=== PATIENT | male | born 1950 | race Caucasian/White ===

== ENCOUNTER 2020-09-21 13:49 | Observation (INO) ==
[2020-09-21] MEDS ORDERED: NORMAL SALINE 1,000 ML IV ONE (14:22)
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
[2020-09-21 14:25] LABS: Hemoglobin 9.6 gm/dL (13.5-18.0); Mean Cell Volume 85.4 fl (78-100); Mean Corpuscular Hemoglobin 26.4 pg (27-31); Mean Platelet Volume 10.4 fl (8-11.3); Neutrophil # 7.2 K/mm3 (1.3-6.0); Neutrophil % 59.1 % (42-75.0); Platelet Count 330 K/mm3 (150-450); Red Blood Count 3.63 M/mm3 (4.7-6.0); Red Cell Distribution Width 13.3 % (11.5-14.0); White Blood Count 12.3 K/mm3 (4.0-10.5)
[2020-09-21 14:42] LABS: ALT 23 U/L (19-67); AST 18 U/L (0-48); Albumin * 2.9 gm/dl (3.4-5.0); Alkaline Phosphatase * 99 U/L (50-170); Anion Gap 15.4 mmol/L (6.8-13.8); BUN/Creatinine Ratio 11.9 (9.0-21.6); Bilirubin, Total 0.4 mg/dL (0.0-1.1); Blood Urea Nitrogen 39 mg/dL (6-23); Ca. Corrected For Albumin 9.9 mg/dL (8.4-10.2); Calcium * 9.3 mg/dL (7.9-10.9); Chloride 102 mmol/L (97-106); Glucose * 115 mg/dL (70-110); Potassium 5.4 mmol/L (3.4-4.6); Sodium 137 mmol/L (132-142); Total Protein 7.9 gm/dL (6.2-8.2); Troponin I Less than 0.017 ng/mL (0.00-0.10)
[2020-09-21 16:41] LABS: Urine Bilirubin 1 mg/dl (NEGATIVE); Urine Blood Negative /ul (NEGATIVE); Urine Ketone 5 mg/dL (NEGATIVE); Urine Nitrite Negative (NEGATIVE); Urine Protein Negative (NEGATIVE); Urine Specific Gravity 1.025 SP.GR. (1.005-1.030); Urine Urobilinogen Normal (NORMAL)
[2020-09-21 16:57] LABS: Urine Appearance Clear (CLEAR); Urine Bacteria TRACE; Urine Color Yellow; Urine Hyaline Cast 0-5 /LPF; Urine RBC TRACE /hpf (0-5); Urine WBC TRACE /hpf (0-5)
--- NOTE | 2020-09-21 17:55 | HP ---
Chief Complaint - Chief Complaint Date of Service: 09/21/20 Time of Service: 15:00 Chief Complaint: weakness, fall History of Present Illness: Pt with PMHx of previous CVA, recent empyema, HTN presents to the ED today after getting weak and falling backwards, hitting his head. He reports being DCd home 2 days ago from a nursing facility in [place], [place]. He went there after a hospitalization at the [facility] in July, when the empyema was drained. He reports not really regaining his strength from that hospitalization. He states he has been eating better the last couple of days, and has been drinking more water. Workup in the ED found an acute ARNULFO, with GFR of 20 and creatinine of 3.28, along with hyperkalemia with K+ of 5.2. He is admitted for fluids for the ARNULFO. He also reports some CP with deep inspiration. He denies fever, SOB, abd pain, constipation, dysuria, skin changes. Medical History (Last Reviewed 09/21/20 @ 14:21 by William Ortiz MD) Allergic rhinitis Onset Date: Unknown Asthma Onset Date: Unknown B12 deficiency Onset Date: Unknown Benign essential HTN Onset Date: Unknown CVA (cerebral vascular accident) Onset Date: Unknown DJD (degenerative joint disease) Onset Date: Unknown Depression Onset Date: Unknown Diabetes Onset Date: Unknown Diverticulitis Onset Date: Unknown Hyperuricemia Onset Date: Unknown Left elbow fracture Onset Date: 09/17/18 Muscle strain of left hip Onset Date: 05/18/17 HUGO (obstructive sleep apnea) Onset Date: Unknown Polyneuropathy Onset Date: Unknown Primary localized osteoarthritis of hip Onset Date: 05/18/17 Rosacea Onset Date: Unknown Spondylolysis Onset Date: Unknown Surgical History: Surgical History (Last Reviewed 09/21/20 @ 17:52 by Bay Arroyo RN) History of colonoscopy Onset Date: 2015 WNL History of herniorrhaphy Onset Date: 1976 left History of thoracic surgery Onset Date: 07/30/20 Dr. Wilberto Bean, [facility]. Thoracoscopy decortication. Family History: Family History (Last Reviewed 09/21/20 @ 17:52 by Bay Arroyo RN) Father , age 70 COPD (chronic obstructive pulmonary disease) Mother , age 67 COPD (chronic obstructive pulmonary disease) Cancer Brother , drowning age 68 No problems noted. 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 Highest level of school completed/degree received: high school graduate Service: No Tobacco: Smoking Status: Never smoker Alcohol: alcohol intake: current Alcohol type: beer details: 2-3 Substance Use: substance use type: does not use Dietary Habits: caffeine: Yes Type: coffee Review Of Systems (GEN) - Review of Systems Generalized/Overall Review: Present: Weakness Immunizations: IMMUNIZATION HX Immunizations Up to Date No History of Influenza Vaccine Yes Hx Pneumococcal Vaccination More Information Required Allergies/Adverse Reactions: Allergies Allergy/AdvReac Type Severity Reaction Status Date / Time No Known Allergies Allergy Verified 09/21/20 17:52 Home Medications: HOME MEDICATIONS albuterol sulfate 90 mcg/actuation aerosol inhaler 2 puff IH .COMPLEX 10/25/18 [Last Taken Unknown] amlodipine 10 mg tablet 10 mg PO DAILY 10/25/18 [Last Taken Unknown] doxazosin 8 mg tablet 8 mg PO DAILY 10/25/18 [Last Taken Unknown] fluticasone propionate 110 mcg/actuation HFA aerosol inhaler 2 puff IH BID 10/25/18 [Last Taken Unknown] folic acid 1 mg tablet 1 mg PO DAILY 10/25/18 [Last Taken Unknown] metformin 500 mg tablet,extended release 24 hr 500 mg PO QPM 10/25/18 [Last Taken Unknown] omeprazole 20 mg tablet,delayed release 20 mg PO DAILY 10/25/18 [Last Taken Unknown] trazodone 50 mg tablet 50 mg PO HS tab 10/25/18 [Last Taken Unknown] vitamin B complex 1 tab PO DAILY 10/25/18 [Last Taken Unknown] Tramadol HCl [Rybix Odt] 50 mg PO DAILY 09/21/20 [Last Taken Unknown] Exam - Exam Vital Signs: Vital Signs - Last Taken Temp 36.4 C 09/21/20 13:50 Pulse 85 09/21/20 16:30 Resp 14 09/21/20 16:30 BP 123/39 09/21/20 16:30 Pulse Ox 98 09/21/20 16:30 Constitutional: Present: Alert, Oriented x3, Cooperative, No distress, Elderly Respiratory: Present: lungs clear, normal breath sounds Cardiovascular/Chest: Present: regular rate, rhythm Abdomen: Present: soft, nontender Extremity: Present: other - no edema Diagnostic Studies: Abnormal Lab Results 09/21/20 09/21/20 09/21/20 Range/Units 14:18 14:18 16:35 WBC 12.3 H (4.0-10.5) K/mm3 RBC 3.63 L (4.7-6.0) M/mm3 Hgb 9.6 L (13.5-18.0) gm/dL Hct 31.0 L (42.0-52.0) % MCH 26.4 L (27-31) pg MCHC 31.0 L (32-36) g/dl Immature Gran # (Auto) 0.04 H (0.000-0.0310) K/mm3 Neutrophils # 7.2 H (1.3-6.0) K/mm3 Lymphocytes # 3.79 H (1.5-3.5) k/mm3 Potassium 5.4 H D (3.4-4.6) mmol/L Anion Gap 15.4 H (6.8-13.8) mmol/L BUN 39 H (6-23) mg/dL Creatinine 3.28 H D (0.4-1.4) mg/dL Est GFR (Non-Af Amer) 20 L D (60-130) mL/min Random Glucose 115 H (70-110) mg/dL Albumin 2.9 L (3.4-5.0) gm/dl Urine Bilirubin 1 H (NEGATIVE) mg/dl Hyaline Casts 0-5 H (NONE) /LPF Laboratory Results WBC 12.3 K/mm3 (4.0-10.5) H 09/21/20 14:18 RBC 3.63 M/mm3 (4.7-6.0) L 09/21/20 14:18 Hgb 9.6 gm/dL (13.5-18.0) L 09/21/20 14:18 Hct 31.0 % (42.0-52.0) L 09/21/20 14:18 MCV 85.4 fl (78-100) 09/21/20 14:18 MCH 26.4 pg (27-31) L 09/21/20 14:18 MCHC 31.0 g/dl (32-36) L 09/21/20 14:18 RDW 13.3 % (11.5-14.0) 09/21/20 14:18 Plt Count 330 K/mm3 (150-450) 09/21/20 14:18 MPV 10.4 fl (8-11.3) 09/21/20 14:18 Immature Gran % (Auto) 0.30 % (0.001-0.429) 09/21/20 14:18 Immature Gran # (Auto) 0.04 K/mm3 (0.000-0.0310) H 09/21/20 14:18 Neutrophils % 59.1 % (42-75.0) 09/21/20 14:18 Lymphocytes % 30.9 % (20-51) 09/21/20 14:18 Monocytes % 8.3 % (0.0-9) 09/21/20 14:18 Eosinophils % 1.2 % (0.0-3.0) 09/21/20 14:18 Basophils % 0.2 % (0.0-1.0) 09/21/20 14:18 Nucleated RBC % 0.0 k/mm3 (0-1) 09/21/20 14:18 Neutrophils # 7.2 K/mm3 (1.3-6.0) H 09/21/20 14:18 Lymphocytes # 3.79 k/mm3 (1.5-3.5) H 09/21/20 14:18 Monocytes # 1.0 k/mm3 (0.0-1.0) 09/21/20 14:18 Eosinophils # 0.2 k/mm3 (0.0-0.7) 09/21/20 14:18 Absolute Basophils 0.0 k/mm3 (0.0-0.1) 09/21/20 14:18 Sodium 137 mmol/L (132-142) 09/21/20 14:18 Plasma Sodium 137 mmol/L (130-142) 09/21/20 14:18 Potassium 5.4 mmol/L (3.4-4.6) H D 09/21/20 14:18 Chloride 102 mmol/L (97-106) 09/21/20 14:18 Carbon Dioxide 25.0 mmol/L (24-32.6) 09/21/20 14:18 Anion Gap 15.4 mmol/L (6.8-13.8) H 09/21/20 14:18 BUN 39 mg/dL (6-23) H 09/21/20 14:18 Creatinine 3.28 mg/dL (0.4-1.4) H D 09/21/20 14:18 Est GFR (Non-Af Amer) 20 mL/min (60-130) L D 09/21/20 14:18 BUN/Creatinine Ratio 11.9 (9.0-21.6) 09/21/20 14:18 Random Glucose 115 mg/dL (70-110) H 09/21/20 14:18 Calcium 9.3 mg/dL (7.9-10.9) 09/21/20 14:18 Calcium Adj for Albumin 9.9 mg/dL (8.4-10.2) 09/21/20 14:18 Total Bilirubin 0.4 mg/dL (0.0-1.1) 09/21/20 14:18 AST 18 U/L (0-48) 09/21/20 14:18 ALT 23 U/L (19-67) 09/21/20 14:18 Alkaline Phosphatase 99 U/L (50-170) 09/21/20 14:18 Creatine Kinase 25 U/L (0-259) 09/21/20 14:18 Troponin I Less than 0.017 ng/mL (0.00-0.10) 09/21/20 14:18 Total Protein 7.9 gm/dL (6.2-8.2) 09/21/20 14:18 Albumin 2.9 gm/dl (3.4-5.0) L 09/21/20 14:18 Urine Color Yellow 09/21/20 16:35 Urine Appearance Clear (CLEAR) 09/21/20 16:35 Urine pH 6.0 pH (5.0-7.0) 09/21/20 16:35 Ur Specific [place] 1.025 SP.GR. (1.005-1.030) 09/21/20 16:35 Urine Protein Negative mg/dL (NEGATIVE) 09/21/20 16:35 Urine Glucose (UA) Negative mg/dL (NEGATIVE) 09/21/20 16:35 Urine Ketones 5 mg/dL (NEGATIVE) 09/21/20 16:35 Urine Blood Negative /ul (NEGATIVE) 09/21/20 16:35 Urine Nitrate Negative (NEGATIVE) 09/21/20 16:35 Urine Bilirubin 1 mg/dl (NEGATIVE) H 09/21/20 16:35 Urine Urobilinogen Normal EU/dl (NORMAL) 09/21/20 16:35 Ur Leukocyte Esterase Negative /ul (NEGATIVE) 09/21/20 16:35 Urine RBC Trace /hpf (0-5) 09/21/20 16:35 Urine WBC Trace /hpf (0-5) 09/21/20 16:35 Ur Epithelial Cells 0-5 /hpf (0-5) 09/21/20 16:35 Urine Bacteria Trace (NONE) 09/21/20 16:35 Hyaline Casts 0-5 /LPF (NONE) H 09/21/20 16:35 Urine Culture Comments No culture indicated 09/21/20 16:35 Ur Random Creatinine 175.4 mg/dL (60-200) 09/21/20 16:35 Ur Random Sodium 84 mmol/L (20-110) 09/21/20 16:35 Ethyl Alcohol Less than 3.0 mg/dL (0.0-10.0) 09/21/20 14:18 SARS-CoV-2 (PCR) Not detected (NotDetected) 09/21/20 15:54 Assessment/Plan - Narrative Narrative: He reports a history of heart failure, and he has a small left pleural effusion on the left. Will give gentle IV fluids for hydration and recheck CMP in am. Will need to hold metformin since his GFR is less than 30. Will ask PT to evaluate, and help determine DC planning. He just went home fro [facility] 2 days ago, after being there for several weeks. Will try to get records from his [facility] hospitalization. If his renal function improves and he can ambulate to the bathroom, he could go home as soon as tomorrow. He answers questions appropriately, and does not seem to have sequela from hitting his head. Negative CT. He is anemic with hgb of 9.0, and will monitor this daily. No signs of active bleed on my exam. Likely due to his poor renal function. He was on his way to his 1st visit with his new PCP, so he does not have a PCP currently. His previous one recently . - Assessment/Plan (1) Generalized weakness Problem: Acute (2) ARNULFO (acute kidney injury) Problem: Acute (3) Fall Problem: Acute (4) Gait instability Problem: Acute (5) Anemia Problem: Acute
[2020-09-21] MEDS ORDERED: ALBUTEROL SULFATE 200 PUFF INHALER IH SCH (18:00)
[2020-09-21] MEDS ORDERED: NORMAL SALINE 1,000 ML IV PRN (20:02)
[2020-09-21] MEDS: BUDESONIDE 0.5 MG/2 ML VIAL.NEB IH SCH (20:22)
[2020-09-21] MEDS ORDERED: traZODone HCL 50 MG TABLET PO SCH (21:00)
[2020-09-21] MEDS ORDERED: MELATONIN 3,000 MCG TABLET PO PRN (22:37)
[2020-09-22] MEDS: BUDESONIDE 0.5 MG/2 ML VIAL.NEB IH SCH (06:01)
[2020-09-22] MEDS ORDERED: PANTOPRAZOLE SODIUM 20 MG TABLET.DR PO SCH (07:00)
[2020-09-22 08:13] LABS: Hematocrit 30.3 % (42.0-52.0); Mean Cell Volume 86.3 fl (78-100); Mean Corpuscular Hemoglobin 25.6 pg (27-31); Mean Corpuscular Hgb Conc 29.7 g/dl (32-36); Mean Platelet Volume 10.2 fl (8-11.3); Neutrophil # 4.7 K/mm3 (1.3-6.0); Neutrophil % 48.3 % (42-75.0); Platelet Count 280 K/mm3 (150-450); Red Blood Count 3.51 M/mm3 (4.7-6.0); Red Cell Distribution Width 13.3 % (11.5-14.0); White Blood Count 9.8 K/mm3 (4.0-10.5)
[2020-09-22 08:30] LABS: Albumin * 2.6 gm/dl (3.4-5.0); Anion Gap 13.5 mmol/L (6.8-13.8); BUN/Creatinine Ratio 12.9 (9.0-21.6); Bilirubin, Total 0.4 mg/dL (0.0-1.1); Ca. Corrected For Albumin 9.8 mg/dL (8.4-10.2); Carbon Dioxide 25.1 mmol/L (24-32.6); Potassium 4.6 mmol/L (3.4-4.6); Total Protein 7.2 gm/dL (6.2-8.2)
[2020-09-22] MEDS ORDERED: amLODIPine BESYLATE 10 MG TABLET PO SCH (09:00)
[2020-09-22] MEDS ORDERED: FOLIC ACID 1 MG TABLET PO SCH (09:00)
[2020-09-22] MEDS ORDERED: TRAMADOL HCL 50 MG PO SCH (09:00)
[2020-09-22] MEDS ORDERED: DOXAZOSIN MESYLATE 2 MG TABLET PO SCH (09:00)
[2020-09-22] MEDS: traMADol HCL 50 MG TABLET PO SCH ×2 (10:02→10:48)
--- NOTE | 2020-09-22 11:23 | PN ---
Subjective - Date and Time Seen Date: 09/22/20 Time: 11:23 Objective - Vitals Vitals: Last Vital Signs Temp 36.5 C 09/22/20 10:00 Pulse 96 09/22/20 10:01 Resp 16 09/22/20 10:00 BP 114/52 09/22/20 10:01 Pulse Ox 98 09/22/20 10:00 - Abnormal Lab Findings Abnormal Lab Findings: Abnormal Lab Results 09/21/20 09/21/20 09/21/20 Range/Units 14:18 14:18 16:35 WBC 12.3 H (4.0-10.5) K/mm3 RBC 3.63 L (4.7-6.0) M/mm3 Hgb 9.6 L (13.5-18.0) gm/dL Hct 31.0 L (42.0-52.0) % MCH 26.4 L (27-31) pg MCHC 31.0 L (32-36) g/dl Immature Gran # (Auto) 0.04 H (0.000-0.0310) K/mm3 Neutrophils # 7.2 H (1.3-6.0) K/mm3 Lymphocytes # 3.79 H (1.5-3.5) k/mm3 Potassium 5.4 H D (3.4-4.6) mmol/L Anion Gap 15.4 H (6.8-13.8) mmol/L BUN 39 H (6-23) mg/dL Creatinine 3.28 H D (0.4-1.4) mg/dL Est GFR (Non-Af Amer) 20 L D (60-130) mL/min Random Glucose 115 H (70-110) mg/dL Albumin 2.9 L (3.4-5.0) gm/dl Urine Bilirubin 1 H (NEGATIVE) mg/dl Hyaline Casts 0-5 H (NONE) /LPF 09/22/20 09/22/20 Range/Units 07:43 07:43 WBC (4.0-10.5) K/mm3 RBC 3.51 L (4.7-6.0) M/mm3 Hgb 9.0 L (13.5-18.0) gm/dL Hct 30.3 L (42.0-52.0) % MCH 25.6 L (27-31) pg MCHC 29.7 L (32-36) g/dl Immature Gran # (Auto) (0.000-0.0310) K/mm3 Neutrophils # (1.3-6.0) K/mm3 Lymphocytes # 3.92 H (1.5-3.5) k/mm3 Potassium (3.4-4.6) mmol/L Anion Gap (6.8-13.8) mmol/L BUN 32 H (6-23) mg/dL Creatinine 2.49 H D (0.4-1.4) mg/dL Est GFR (Non-Af Amer) 27 L D (60-130) mL/min Random Glucose (70-110) mg/dL Albumin 2.6 L (3.4-5.0) gm/dl Urine Bilirubin (NEGATIVE) mg/dl Hyaline Casts (NONE) /LPF Assessment/Plan - Problems/Diagnosis (1) Generalized weakness Problem: Acute (2) ARNULFO (acute kidney injury) Problem: Acute (3) Fall Problem: Acute (4) Gait instability Problem: Acute (5) Anemia Problem: Acute
--- NOTE | 2020-09-22 12:04 | DS ---
(1) Generalized weakness Problem: Chronic (2) ARNULFO (acute kidney injury) Problem: Acute (3) Fall Problem: Acute (4) Gait instability Problem: Acute (5) Anemia Problem: Acute Date of Discharge:: 09/22/20 Hospital Course: Pt with PMHx of previous CVA, recent empyema, HTN, failure to thrive presented to the ED after getting weak and falling backwards, hitting his head. Negative head CT. He reports being DCd home 2 days prior to admission from a nursing facility in [place], [place]. He went there after a hospitalization at the [facility] in July, when the empyema was drained. He had several procedures performed during that hospitalization, including thoracentesis, left lung decortication, and teeth extraction. He reports not really regaining his strength from that hospitalization. His DC from the [facility] reports severe protein calorie malnutrition. Palliative care consulted, and he wanted to continue full treatment. He states he has been eating better the last couple of days, and has been drinking more water. Workup in the ED found an acute ARNULFO, with GFR of 20 and creatinine of 3.28, along with hyperkalemia with K+ of 5.2. Baseline creatinine appears to be around 1.53. He is admitted for fluids for the ARNULFO. He also reports some CP with deep inspiration. Negative troponin, and no EKG changes. He denies fever, SOB, abd pain, constipation, dysuria, skin changes. His creatinine improved from 3.28 to 2.49, and GFR improved from 20 to 27 after one L IV fluids. He reports feeling 50-75% better than he did yesterday. Since his weakness appears to be chronic and his renal function improved after minimal fluids, will DC home. He agrees to PT. Home health was offered when he left the facility in [place], but he did not want to be homebound. Recommend boost or ensure with meals to help regain strength, and recommend adequate hydration. He is very concerned about his right elbow and feels like he may need surgery. He has reduced ROM, but no signs of acute fracture. Suspect cubital tunnel syndrome. He reports falling prior to his July hospital admission. Recommend outpatient follow up with his new PCP. Recommend BMP in one week. Procedures Performed: none Results and Findings: Lab Pending Results 09/21/20 14:18: WBC 12.3 H, RBC 3.63 L, Hgb 9.6 L, Hct 31.0 L, MCV 85.4, MCH 26.4 L, MCHC 31.0 L, RDW 13.3, Plt Count 330, MPV 10.4, Immature Gran % (Auto) 0.30, Immature Gran # (Auto) 0.04 H, Neutrophils % 59.1, Lymphocytes % 30.9, Monocytes % 8.3, Eosinophils % 1.2, Basophils % 0.2, Nucleated RBC % 0.0, Neutrophils # 7.2 H, Lymphocytes # 3.79 H, Monocytes # 1.0, Eosinophils # 0.2, Absolute Basophils 0.0 09/21/20 14:18: Sodium 137, Plasma Sodium 137, Potassium 5.4 H D, Chloride 102, Carbon Dioxide 25.0, Anion Gap 15.4 H, BUN 39 H, Creatinine 3.28 H D, Est GFR (Non-Af Amer) 20 L D, BUN/Creatinine Ratio 11.9, Random Glucose 115 H, Calcium 9.3, Calcium Adj for Albumin 9.9, Total Bilirubin 0.4, AST 18, ALT 23, Alkaline Phosphatase 99, Troponin I Less than 0.017, Total Protein 7.9, Albumin 2.9 L, Ethyl Alcohol Less than 3.0 09/21/20 14:18: Creatine Kinase 25 09/21/20 15:54: SARS-CoV-2 (PCR) Not detected 09/21/20 16:35: Ur Random Creatinine 175.4, Ur Random Sodium 84 09/21/20 16:35: Urine Color Yellow, Urine Appearance Clear, Urine pH 6.0, Ur Specific [place] 1.025, Urine Protein Negative, Urine Glucose (UA) Negative, Urine Ketones 5, Urine Blood Negative, Urine Nitrate Negative, Urine Bilirubin 1 H, Urine Urobilinogen Normal, Ur Leukocyte Esterase Negative, Urine RBC Trace, Urine WBC Trace, Ur Epithelial Cells 0-5, Urine Bacteria Trace, Hyaline Casts 0- 5 H, Urine Culture Comments No culture indicated 09/22/20 07:43: WBC 9.8 D, RBC 3.51 L, Hgb 9.0 L, Hct 30.3 L, MCV 86.3, MCH 25.6 L, MCHC 29.7 L, RDW 13.3, Plt Count 280, MPV 10.2, Immature Gran % (Auto) 0.10, Immature Gran # (Auto) 0.01, Neutrophils % 48.3, Lymphocytes % 39.8, Mo nocytes % 8.6, Eosinophils % 3.0, Basophils % 0.2, Nucleated RBC % 0.0, Neutrophils # 4.7, Lymphocytes # 3.92 H, Monocytes # 0.9, Eosinophils # 0.3, Absolute Basophils 0.0 09/22/20 07:43: Sodium 140, Plasma Sodium 140, Potassium 4.6, Chloride 106, Carbon Dioxide 25.1, Anion Gap 13.5, BUN 32 H, Creatinine 2.49 H D, Est GFR (Non-Af Amer) 27 L D, BUN/Creatinine Ratio 12.9, Random Glucose 86, Calcium 9.0, Calcium Adj for Albumin 9.8, Total Bilirubin 0.4, AST 16, ALT 21, Alkaline Phosphatase 92, Total Protein 7.2, Albumin 2.6 L Discharge Location: Home Disposition: Home self-care Condition: Fair Discharge Activity: Activity as tolerated Discharge Diet: General/regular food Additional Patient Instructions (free text): Please reschedule with the physician he was planning to see on 09/21/20 in 3-5 days. Complete Home Medications List: Complete Home Medication List: albuterol sulfate 90 mcg/actuation aerosol inhaler 2 puff IH .COMPLEX 10/25/18 doxazosin 8 mg tablet 8 mg PO DAILY 10/25/18 fluticasone propionate 110 mcg/actuation HFA aerosol inhaler 2 puff IH BID 10/25/18 trazodone 50 mg tablet 50 mg PO HS tab 10/25/18 Melatonin/Pyridoxine HCl (B6) [Melatonin 3 mg Tablet] 2 ea PO HS 09/21/20 Spironolactone [Aldactone] 50 mg PO BID 09/21/20 Tramadol HCl [Rybix Odt] 50 mg PO QID 09/21/20 Folic Acid 1 mg PO DAILY tablet 09/22/20 Ibuprofen [Motrin] 600 mg PO Q6H PRN 09/22/20 Melatonin 3,000 mcg PO HS PRN tablet 09/22/20 Pantoprazole Sodium [Protonix] 20 mg PO DAILY@0700 tablet. 09/22/20 amLODIPine BESYLATE [Norvasc] 10 mg PO DAILY tablet 09/22/20 traMADol HCL [Ultram] 50 mg PO DAILY tablet 09/22/20
[2020-09-22 14:49] VITALS: BP 116/56
== END 2020-09-22 15:20 | disposition home or self-care (01) ==
LOC: MS 13:49 → ER 13:49 → MS 17:45
PROVIDERS: ADMIT Family Medicine; ATTEND Family Medicine
DX: J90 Pleural effusion, not elsewhere classified; D64.9 Anemia, unspecified; R53.1 Weakness; E87.5 Hyperkalemia; Z86.73 Personal history of transient ischemic attack (TIA), and cerebral infarction without residual deficits; R26.81 Unsteadiness on feet; W10.1XXA Fall (on)(from) sidewalk curb, initial encounter; N17.9 Acute kidney failure, unspecified; S00.03XA Contusion of scalp, initial encounter